=== PATIENT | female | born 1980 | race Caucasian/White ===

== ENCOUNTER → 2020-08-26 | Outpatient (CLI) | payer OTHER ==
[2020-08-26 12:13] LABS: BASOPHILS % (AUTO) 1 % (0-1); EOSINOPHILS % (AUTO) 2 % (1-7); LYMPHOCYTES % (AUTO) 23 % (22-44); MEAN CORPUSCULAR HEMOGLOBIN 28.7 pg (27.0-34.8); MEAN CORPUSCULAR HGB CONC 32.9 g/dL (32.4-35.8); MEAN PLATELET VOLUME 8.6 fL (7.4-10.4); MONOCYTES % (AUTO) 5 % (2-9); NEUTROPHILS % (AUTO) 70 % (42-75); PLATELET COUNT 264 x10^3/uL (130-400); RED CELL DISTRIBUTION WIDTH 15.1 % (9.6-15.2)
[2020-08-26 12:14] LABS: MD NO
[2020-08-26 12:23] LABS: ANION GAP 3 mmol/L (5-15); CALCIUM 8.7 mg/dL (8.5-10.1); CHLORIDE 107 mmol/L (98-107)
[2020-08-26 12:28] LABS: ALANINE AMINOTRANSFERASE 33 U/L (12-78); ALBUMIN 3.3 g/dL (3.4-5.0); ALKALINE PHOSPHATASE 101 U/L (45-117); BILIRUBIN,TOTAL 0.3 mg/dL (0.2-1.0); TOTAL PROTEIN 7.4 g/dL (6.4-8.2)
[2020-08-26 12:30] LABS: CREATININE 0.68 mg/dL (0.55-1.02)
[2020-08-26 12:49] LABS: MICROSCOPIC INDICATED
== END | disposition home or self-care (01) ==
LOC: STAR 10:10
PROVIDERS: ATTEND Obstetrics & Gynecology Gynecology
DX: Z01.818 Encounter for other preprocedural examination (principal); N93.9 Abnormal uterine and vaginal bleeding, unspecified; D25.9 Leiomyoma of uterus, unspecified; Z20.822 Contact with and (suspected) exposure to COVID-19
CPT/HCPCS: 36415; 71046; 80053; 81001; 84702; 85025; 87086; 93005; U0003; U0005

== ENCOUNTER 2020-09-01 05:36 | Day surgery (SDC) | payer OTHER ==
[~2020-09-01] VITALS: Ht 162.6 cm; Wt 169.7 kg
[2020-09-01 06:29] LABS: HCG UR SG 1.021 (1.003-1.030)
[2020-09-01] MEDS ORDERED: LIDOCAINE-MPF 1%, 2ML INFIL ONE (06:30)
[2020-09-01] MEDS ORDERED: CHLORHEXIDINE 15 ML UDC PO ONE (06:30)
[2020-09-01] MEDS ORDERED: LACTATED RINGERS 1,000 ML IV SCH (06:30)
[2020-09-01] MEDS ORDERED: MIDAZOLAM 1 MG/ML, 2ML ONE (06:56)
[2020-09-01] MEDS ORDERED: FENTANYL PF 100 MCG/2ML ONE ×4 (06:56→11:53)
[2020-09-01] MEDS ORDERED: BUPIVACAINE/PF 0.25% ONE (06:58)
[2020-09-01] MEDS ORDERED: EPINEPHRINE 1 MG/ML, 1ML ONE (06:58)
[2020-09-01] MEDS ORDERED: GLYCOPYRROLATE 0.2MG/1ML, 5ML ONE (06:58)
[2020-09-01] MEDS ORDERED: ONDANSETRON 2MG/ML, 2ML ONE (06:58)
[2020-09-01] MEDS ORDERED: ROCURONIUM 10MG/ML,5ML ONE (06:58)
[2020-09-01] MEDS ORDERED: CEFAZOLIN 1,000 MG ONE (06:58)
[2020-09-01] MEDS ORDERED: PROPOFOL 10 MG/ML, 20ML ONE (06:58)
[2020-09-01] MEDS ORDERED: NEOSTIGMINE 1 MG/ML, 10ML ONE (06:58)
[2020-09-01] MEDS ORDERED: SUCCINYLCHOLINE 20 MG/ML, 10ML ONE (06:58)
[2020-09-01] MEDS ORDERED: MANNITOL PMX 20% 500 ML ONE (06:58)
[2020-09-01] MEDS ORDERED: DEXAMETHASONE 4 MG/ML, 1ML ONE (06:58)
[2020-09-01] MEDS ORDERED: CLINDAMYCIN 150 MG/ML, 6ML ONE (07:27)
[2020-09-01] MEDS ORDERED: KETOROLAC 30 MG/1 ML IVPush PRN (07:30)
[2020-09-01] MEDS ORDERED: ACETAMINOPHEN 325 MG TABLET PO PRN (07:30)
[2020-09-01] MEDS ORDERED: HYDROmorphone 1 MG/ML, 1ML INJ IVPush PRN (07:30)
[2020-09-01] MEDS ORDERED: PROMETHAZINE 25 MG/ML, 1ML IVPush PRN (07:30)
[2020-09-01] MEDS ORDERED: ONDANSETRON 2MG/ML, 2ML IVPush PRN (07:30)
[2020-09-01] MEDS ORDERED: OXYcodone 5 MG/5 ML ORAL.SOL UDC PO PRN (07:30)
[2020-09-01] MEDS ORDERED: MEPERIDINE/PF 25MG/0.5ML IVPush PRN (07:30)
[2020-09-01] MEDS ORDERED: HYDROcodone/APAP 7.5-325MG/15ML UDC PO PRN (07:30)
[2020-09-01] MEDS: FENTANYL PF 100 MCG/2ML IV PRN ×4 (11:00→11:58)
[2020-09-01] MEDS ORDERED: KETOROLAC 30 MG/1 ML ONE (11:26)
[2020-09-01] MEDS ORDERED: ACETAMINOPHEN 650 MG/20.3 ML UDC ONE (11:26)
[2020-09-01] MEDS ORDERED: OXYcodone 5 MG/5 ML ORAL.SOL UDC ONE (11:26)
== END 2020-09-01 14:55 | disposition home or self-care (01) ==
LOC: OUT 05:36
PROVIDERS: ATTEND Obstetrics & Gynecology Gynecology
DX: N93.9 Abnormal uterine and vaginal bleeding, unspecified (principal); N94.6 Dysmenorrhea, unspecified; D25.9 Leiomyoma of uterus, unspecified; G43.909 Migraine, unspecified, not intractable, without status migrainosus; E66.01 Morbid (severe) obesity due to excess calories; Z79.891 Long term (current) use of opiate analgesic; Z79.899 Other long term (current) drug therapy; Z88.0 Allergy status to penicillin; Z83.3 Family history of diabetes mellitus
CPT/HCPCS: 36415; 58573; 81025; 86850; 86900; 88307; J0171; J0330; J0690; J1100; J1170; J1885; J2250; J2405; J2704; J2710; J3010; J7120; S2900

== ENCOUNTER 2020-09-10 12:17 | Inpatient (IN) | payer OTHER ==
[~2020-09-10] VITALS: Ht 162.6 cm; Wt 166.4 kg
--- NOTE | 2020-09-10 12:40 | NUR ---
Pt ambulatory to bathroom for UA with steady gait.
[2020-09-10 13:10] LABS: BASOPHILS % (AUTO) 1 % (0-1); EOSINOPHILS % (AUTO) 1 % (1-7); LYMPHOCYTES % (AUTO) 9 % (22-44); MEAN CORPUSCULAR HEMOGLOBIN 28.8 pg (27.0-34.8); MEAN CORPUSCULAR HGB CONC 33.5 g/dL (32.4-35.8); MEAN PLATELET VOLUME 8.4 fL (7.4-10.4); MONOCYTES % (AUTO) 5 % (2-9); NEUTROPHILS % (AUTO) 85 % (42-75); PLATELET COUNT 318 x10^3/uL (130-400); RED BLOOD COUNT 4.36 x10^6/uL (3.82-5.3); RED CELL DISTRIBUTION WIDTH 14.5 % (9.6-15.2)
[2020-09-10 13:18] LABS: ALBUMIN 2.8 g/dL (3.4-5.0); ANION GAP 8 mmol/L (5-15); CALCIUM 8.8 mg/dL (8.5-10.1); CHLORIDE 106 mmol/L (98-107); CREATININE 0.73 mg/dL (0.55-1.02)
[2020-09-10] MEDS: MORPHINE SULFATE 4 MG/ML, 1ML IVPush PRN ×2 (13:55→15:05)
[2020-09-10] MEDS ORDERED: SODIUM CHLORIDE 0.9% 1,000ML IVBOLUS ONE (14:00)
[2020-09-10] MEDS ORDERED: ONDANSETRON 2MG/ML, 2ML IVPush ONE (14:00)
[2020-09-10] MEDS ORDERED: SODIUM CHLORIDE FLUSH 10ML SYR IVF ONE (14:00)
--- NOTE | 2020-09-10 14:04 | NUR ---
Pt had hysterectomy on 09/01/20. Began taking abx for UTI, sudden onset of pain in bladder and flank started on Saturday. Pt also complains of WHITE, nausea and loose stool, states "all those things are listed as side effects from the abx." Pt unable to find a position of comfort, continually up from bed. at bedside.
[2020-09-10 14:17] LABS: MICROSCOPIC INDICATED
[2020-09-10] MEDS ORDERED: MORPHINE SULFATE 4 MG/ML, 1ML ONE (15:03)
[2020-09-10] MEDS: CEFOTETAN PMX 2GM/50ML 50 ML IVPB ONE ×2 (15:16→15:18)
[2020-09-10] MEDS ORDERED: METRONIDAZOLE PMX 500MG/100ML 100 ML IV ONE (15:30)
[2020-09-10] MEDS ORDERED: ERTAPENEM 1 GM in SODIUM CHLORIDE 0.9% 50 ML IV ONE (15:30)
--- NOTE | 2020-09-10 15:32 | NUR ---
Awaiting BC draw prior to abx admin.
--- NOTE | 2020-09-10 15:52 | NUR ---
Pt ambulatory to bathroom with steady gait.
--- NOTE | 2020-09-10 16:20 | NUR ---
Report to [email or web address] Rendon RN.
[2020-09-10 16:36] VITALS: BP 139/80
[2020-09-10] MEDS ORDERED: ONDANSETRON 2MG/ML, 2ML IVPush PRN (17:00)
[2020-09-10] MEDS ORDERED: METHOCARBAMOL 500 MG TABLET PO PRN (17:00)
[2020-09-10] MEDS ORDERED: ZOLPIDEM 5MG TABLET PO PRN (17:00)
[2020-09-10] MEDS ORDERED: ONDANSETRON ODT 4 MG PO PRN (17:00)
[2020-09-10] MEDS ORDERED: morphine SULFATE 10 MG/ML, 1ML IVPush PRN (17:00)
[2020-09-10] MEDS ORDERED: hydrALAzine 20 MG/ML, 1ML IVPush PRN (17:00)
[2020-09-10] MEDS ORDERED: DOCUSATE 100 MG CAPSULE PO PRN (17:00)
[2020-09-10] MEDS ORDERED: ACETAMINOPHEN 325 MG TABLET PO PRN (17:00)
[2020-09-10 20:16] VITALS: BP 104/72
[2020-09-10] MEDS: SODIUM CHLORIDE 0.9% 1,000 ML IV SCH (20:40)
[2020-09-10] MEDS: HYDROcodone/APAP 5/325 TABLET PO PRN ×2 (20:40→22:25)
[2020-09-11 00:09] VITALS: BP 103/69
[2020-09-11] MEDS ORDERED: CALCIUM CARBONATE 500 MG TAB.CHEW PO PRN (00:15)
[2020-09-11 05:28] LABS: BASOPHILS % (AUTO) 0 % (0-1); EOSINOPHILS % (AUTO) 1 % (1-7); LYMPHOCYTES % (AUTO) 17 % (22-44); MEAN CORPUSCULAR HEMOGLOBIN 27.9 pg (27.0-34.8); MEAN CORPUSCULAR HGB CONC 32.3 g/dL (32.4-35.8); MEAN PLATELET VOLUME 8.2 fL (7.4-10.4); MONOCYTES % (AUTO) 6 % (2-9); NEUTROPHILS % (AUTO) 76 % (42-75); PLATELET COUNT 284 x10^3/uL (130-400); RED BLOOD COUNT 4.08 x10^6/uL (3.82-5.3); RED CELL DISTRIBUTION WIDTH 14.8 % (9.6-15.2)
[2020-09-11 05:35] LABS: ANION GAP 9 mmol/L (5-15); CALCIUM 9.1 mg/dL (8.5-10.1); CHLORIDE 107 mmol/L (98-107); CREATININE 0.59 mg/dL (0.55-1.02)
[2020-09-11] MEDS: SODIUM CHLORIDE 0.9% 1,000 ML IV SCH ×2 (06:04→15:52)
[2020-09-11 06:26] VITALS: BP 108/74
[2020-09-11] MEDS: SENNA/DOCUSATE TABLET PO SCH (08:11)
[2020-09-11] MEDS: BUTALB/APAP/CAFFEINE 50MG/325MG/40MG PO PRN ×4 (09:13→22:08)
[2020-09-11 12:48] VITALS: BP 131/78
[2020-09-11] MEDS: ERTAPENEM 1 GM in SODIUM CHLORIDE 0.9% 50 ML IV SCH (15:52)
[2020-09-11 18:04] VITALS: BP 108/73
[2020-09-12 01:29] VITALS: BP 118/61
[2020-09-12] MEDS: SODIUM CHLORIDE 0.9% 1,000 ML IV SCH (02:34)
[2020-09-12 05:37] LABS: BASOPHILS % (AUTO) 1 % (0-1); EOSINOPHILS % (AUTO) 3 % (1-7); LYMPHOCYTES % (AUTO) 22 % (22-44); MEAN CORPUSCULAR HEMOGLOBIN 28.7 pg (27.0-34.8); MEAN CORPUSCULAR HGB CONC 33.8 g/dL (32.4-35.8); MEAN PLATELET VOLUME 7.9 fL (7.4-10.4); MONOCYTES % (AUTO) 5 % (2-9); NEUTROPHILS % (AUTO) 70 % (42-75); PLATELET COUNT 295 x10^3/uL (130-400); RED BLOOD COUNT 3.84 x10^6/uL (3.82-5.3); RED CELL DISTRIBUTION WIDTH 14.6 % (9.6-15.2)
[2020-09-12 05:40] LABS: ANION GAP 3 mmol/L (5-15); CHLORIDE 108 mmol/L (98-107); CREATININE 0.58 mg/dL (0.55-1.02)
[2020-09-12] MEDS: HYDROcodone/APAP 5/325 TABLET PO PRN ×3 (05:59→18:39)
[2020-09-12 07:26] VITALS: BP 94/65
[2020-09-12] MEDS: SENNA/DOCUSATE TABLET PO SCH (09:21)
[2020-09-12] MEDS ORDERED: CIPR500T4 PO (09:39)
[2020-09-12] MEDS ORDERED: METR500T PO (12:39)
[2020-09-12 13:40] VITALS: BP 108/74
[2020-09-12] MEDS: ERTAPENEM 1 GM in SODIUM CHLORIDE 0.9% 50 ML IV SCH (16:23)
[2020-09-12 19:29] VITALS: BP 134/82
== END 2020-09-12 19:30 | disposition home or self-care (01) | DRG 863 ==
LOC: ED 12:50 → EDIP 15:58 → INTOOBSV 15:58 → 4NW 16:28 → OBSVTOIN 09-11 17:48
PROVIDERS: ADMIT Internal Medicine; ATTEND Hospitalist
DX: T81.41XA Infection following a procedure, superficial incisional surgical site, initial encounter (principal); Z68.44 Body mass index [BMI] 60.0-69.9, adult; E66.9 Obesity, unspecified; N73.9 Female pelvic inflammatory disease, unspecified; N95.1 Menopausal and female climacteric states; Y83.8 Other surgical procedures as the cause of abnormal reaction of the patient, or of later complication, without mention of misadventure at the time of the procedure; Z87.891 Personal history of nicotine dependence; Z88.0 Allergy status to penicillin; Z90.710 Acquired absence of both cervix and uterus; Z88.1 Allergy status to other antibiotic agents; Z88.8 Allergy status to other drugs, medicaments and biological substances; Z90.722 Acquired absence of ovaries, bilateral; Z90.49 Acquired absence of other specified parts of digestive tract; Y92.89 Other specified places as the place of occurrence of the external cause
CPT/HCPCS: 36415; 74176; 80048; 81001; 82040; 85025; 87040; 87086; 96361; 96374; 96375; 96376; G0378; J1335; J2405; J2270; J7030